=== PATIENT | female | born 1990 | race Caucasian/White ===

== ENCOUNTER 2025-05-19 19:45 | Emergency (ER) | payer OTHER ==
[~2025-05-19] VITALS: Ht 167.6 cm; Wt 56.7 kg
[2025-05-19] MEDS ORDERED: Acetaminophen/Hydrocodone HP 10/325 PO ONE (20:00)
[2025-05-19] MEDS ORDERED: Ondansetron Hydrochloride 4 MG TAB SL ONE ×3 (20:10→22:10)
[2025-05-19] MEDS ORDERED: Ondansetron Hydrochloride 4 MG/2 ML VIAL IV ONE (21:35)
[2025-05-19] MEDS ORDERED: Ondansetron 4 MG 2 TAB ED PACK PO SCH (21:55)
[2025-05-19] MEDS ORDERED: Acetaminophen/Hydrocodone 5 MG/325 MG TABLET PO ONE (21:55)
[2025-05-19] MEDS ORDERED: Ondansetron4 MG PO (21:56)
[2025-05-19] MEDS ORDERED: HYDROCODONE-AC1 EAC1 PO (21:56)
== END 2025-05-19 22:09 | disposition home or self-care (01) ==
LOC: ED 19:45
DX: S52.501A Unspecified fracture of the lower end of right radius, initial encounter for closed fracture (principal); S52.611A Displaced fracture of right ulna styloid process, initial encounter for closed fracture; Z88.0 Allergy status to penicillin; Z88.8 Allergy status to other drugs, medicaments and biological substances; W01.0XXA Fall on same level from slipping, tripping and stumbling without subsequent striking against object, initial encounter; Y93.89 Activity, other specified; Y92.89 Other specified places as the place of occurrence of the external cause; Y99.8 Other external cause status